=== PATIENT | female | born 1995 | race Caucasian/White ===

== ENCOUNTER 2024-05-04 21:17 | Inpatient (IN) | payer SELFPAY ==
[~2024-05-04] VITALS: Ht 157.5 cm; Wt 690.4 kg
[2024-05-04 21:30] VITALS: BP_SYST 136; PULSE 124; RESP 18; TEMP 101.1; O2SAT 99
[2024-05-04 22:33] LABS: BILIRUBIN,URINE NEGATIVE (NEGATIVE); BLOOD, URINE 3+ (NEGATIVE); CLARITY/URINE CLEAR (CLEAR); COLOR,URINE YELLOW (YELLOW); GLUCOSE,URINE NEGATIVE (NEGATIVE); KETONES,URINE NEGATIVE (NEGATIVE); LEUKOCYTE ESTERASE ,URINE 2+ (NEGATIVE); NITRITE, URINE POSITIVE (NEGATIVE); PROTEIN URINE 2+ (NEGATIVE); UROBILINOGEN,URINE 0.2 (0.2-1.0)
[2024-05-04 23:11] LABS: BACTERIA,URINE FEW /HPF (None Seen)
[2024-05-04] MEDS: cefTRIAXone 1 GM IVPB PREMIX 50 ML IV ONE (23:24)
[2024-05-04 23:27] LABS: BASOPHILS % (AUTO) 0.2 % (0.0-2.0); HEMATOCRIT 40.2 % (36-48); LYMPHOCYTES # (AUTO) 0.8 K/uL (1.0-5.5); LYMPHOCYTES % (AUTO) 5.7 % (20.5-51.5); MEAN CORPUSCULAR HEMOGLOBIN 32 pg (27-31); MEAN CORPUSCULAR HGB CONC 35 % (32-36); MEAN CORPUSCULAR VOLUME 91 fL (79.0-98.0); MONOCYTES % (AUTO) 7.1 % (1.7-9.3); NEUTROPHILS # (AUTO) 12.5 K/uL (1.8-7.7); PLATELET COUNT (AUTO) 315 K/uL (130-430); RED BLOOD CELL COUNT(AUTO) 4.44 MIL/uL (4.2-6.2); RED CELL DISTRIBUTION WIDTH 12.7 % (9.0-15.0); WHITE BLOOD COUNT (AUTO) 14.3 K/uL (4.8-10.8)
[2024-05-04] MEDS: ACETAMINOPHEN 500 MG TABLET PO ONE (23:29)
[2024-05-04] MEDS: NS 1000 ML IV.SOLN IV ONE (23:29)
[2024-05-04 23:45] LABS: PROTHROMBIN TIME 10.6 SECS (9.5-12.5)
[2024-05-04 23:52] LABS: ALANINE AMINOTRANSFERASE 24 U/L (12-78); ALBUMIN 3.9 g/dL (3.4-4.8); ANION GAP 9 (5-15); ASPARTATE AMINOTRANSFERASE 19 U/L (10-37); CALCIUM 8.9 mg/dL (8.4-11.0); CARBON DIOXIDE 29 mmol/L (23-29); CHLORIDE 102 mmol/L (98-107); CREATININE 1.08 mg/dL (0.55-1.30); GFR AFRICAN AMERICAN 77 mL/min (>90); GLUCOSE 117 mg/dL (74-106); POTASSIUM 3.4 mmol/L (3.5-5.1); SODIUM SERUM 140 mmol/L (136-145); TOTAL BILIRUBIN 1.1 mg/dL (0.0-1.0); TOTAL PROTEIN, SERUM 8.6 g/dL (6.4-8.3); UREA NITROGEN, BLOOD 12 mg/dL (8-21)
[2024-05-04 23:55] LABS: BILIRUBIN,DIRECT 0.3 mg/dL (0.0-0.3)
[2024-05-05 00:16] LABS: GFR NON AFRICAN-AMERICAN 64 mL/min (>90)
[2024-05-05 00:23] LABS: SERUM HCG (QUALITATIVE) NEGATIVE (NEGATIVE)
[2024-05-05] MEDS ORDERED: MORPHINE 2 MG/ML INJ. SYRINGE IVP PRN (00:45)
[2024-05-05] MEDS: ONDANSETRON HCL 4 MG/2 ML VIAL IVP PRN (03:36)
[2024-05-05] MEDS: ACETAMINOPHEN 325 MG TABLET PO PRN (03:37)
[2024-05-05] MEDS: LORazepam 2 MG/ML VIAL IVP ONE (03:51)
[2024-05-05 08:36] LABS: BASOPHILS % (AUTO) 0.2 % (0.0-2.0); EOSINOPHILS % (AUTO) 0.1 % (0.0-4.0); HEMATOCRIT 33.5 % (36-48); HEMOGLOBIN 11.3 g/dL (12.0-16.0); LYMPHOCYTES # (AUTO) 1.5 K/uL (1.0-5.5); LYMPHOCYTES % (AUTO) 11.7 % (20.5-51.5); MEAN CORPUSCULAR HEMOGLOBIN 31 pg (27-31); MEAN CORPUSCULAR HGB CONC 34 % (32-36); MEAN CORPUSCULAR VOLUME 91 fL (79.0-98.0); MONOCYTES # (AUTO) 1.3 K/uL (0.0-1.0); MONOCYTES % (AUTO) 9.8 % (1.7-9.3); NEUTROPHILS # (AUTO) 10.1 K/uL (1.8-7.7); NEUTROPHILS % (AUTO) 78.2 % (40.0-70.0); PLATELET COUNT (AUTO) 283 K/uL (130-430); RED BLOOD CELL COUNT(AUTO) 3.67 MIL/uL (4.2-6.2); RED CELL DISTRIBUTION WIDTH 12.6 % (9.0-15.0)
[2024-05-05 08:52] LABS: CALCIUM 7.8 mg/dL (8.4-11.0); CREATININE 0.77 mg/dL (0.55-1.30); POTASSIUM 3.6 mmol/L (3.5-5.1)
[2024-05-05 11:30] VITALS: BP_SYST 111; PULSE 97; RESP 16; TEMP 97.9; O2SAT 100
[2024-05-05] MEDS: NACL 0.9% 1,000 ML IV SCH (13:20)
[2024-05-05] MEDS: KCL 20 mEq in 100 mL (PREMIX) 100 ML IV ONE (13:23)
[2024-05-05 18:04] VITALS: BP_SYST 112; PULSE 101; RESP 16; TEMP 98.7; O2SAT 98
[2024-05-05 20:16] VITALS: BP_SYST 104; PULSE 100; RESP 20; TEMP 98.4; O2SAT 100; O2SAT 98
[2024-05-05] MEDS: cefTRIAXone 1 GM in D5W 50 ML IV SCH (22:25)
[2024-05-06 00:53] VITALS: BP_SYST 95; PULSE 66; RESP 18; TEMP 98.4; O2SAT 100
[2024-05-06 08:00] VITALS: BP_SYST 110; PULSE 72; RESP 16; TEMP 98; O2SAT 98
[2024-05-06 08:33] LABS: BASOPHILS % (AUTO) 0.2 % (0.0-2.0); EOSINOPHILS % (AUTO) 0.4 % (0.0-4.0); HEMATOCRIT 35.6 % (36-48); HEMOGLOBIN 12.2 g/dL (12.0-16.0); LYMPHOCYTES # (AUTO) 1.4 K/uL (1.0-5.5); MEAN CORPUSCULAR HEMOGLOBIN 31 pg (27-31); MEAN CORPUSCULAR HGB CONC 34 % (32-36); MEAN CORPUSCULAR VOLUME 92 fL (79.0-98.0); MONOCYTES % (AUTO) 10.4 % (1.7-9.3); PLATELET COUNT (AUTO) 300 K/uL (130-430); RED BLOOD CELL COUNT(AUTO) 3.89 MIL/uL (4.2-6.2); RED CELL DISTRIBUTION WIDTH 12.6 % (9.0-15.0); WHITE BLOOD COUNT (AUTO) 9.4 K/uL (4.8-10.8)
[2024-05-06 08:55] LABS: CALCIUM 8.7 mg/dL (8.4-11.0); CREATININE 0.86 mg/dL (0.55-1.30); POTASSIUM 3.9 mmol/L (3.5-5.1)
[2024-05-06] MEDS ORDERED: LEVO-62 PO (09:16)
[2024-05-06 11:53] VITALS: BP_SYST 113; PULSE 92; RESP 18; TEMP 98.7; O2SAT 99
== END 2024-05-06 14:22 | disposition home or self-care (01) | DRG 872 ==
LOC: SED 21:17 → SMU 05-05 00:41
PROVIDERS: ADMIT Internal Medicine; ATTEND Internal Medicine
DX: A41.9 Sepsis, unspecified organism (principal); N12 Tubulo-interstitial nephritis, not specified as acute or chronic; N39.0 Urinary tract infection, site not specified; N17.9 Acute kidney failure, unspecified; E87.6 Hypokalemia; Z79.899 Other long term (current) drug therapy; Z88.8 Allergy status to other drugs, medicaments and biological substances
CPT/HCPCS: 36415; 71045; 80048; 80076; 81000; 81001; 81015; 83605; 84484; 84703; 85025; 85610; 85730; 87040; 87086; 87186; 93005; 99291; J0696; J2060; J2405; J3480; J7030; J7060